=== PATIENT | male | born 1960 | race Two or more races ===

== ENCOUNTER → 2017-12-04 | Day surgery (SDC) | payer OTHER ==
[~2017-12-04] MED LIST: IPRATRPIUM/ALBUTEROL 0.5/2.5MG 3 ML NEBU. NEB; LIDOCAINE 1% PF 2 ML VIAL. ID; LIDOCAINE 2% PF Vial for OR 5 ML VIAL.; MIDAZOLAM HCL/PF 2 MG/2 ML VIAL. IV; PROPOFOL 40 ML IV; fentaNYL PF VIAL 100 MCG/2 ML VIAL IV
[2017-12-04] MEDS: IV RINGERS,LACTATED 1000ML 1,000 ML IV (09:37)
== END | disposition home or self-care (01) ==
LOC: SURG 08:59
DX: Z12.11 Encounter for screening for malignant neoplasm of colon (principal); K64.0 First degree hemorrhoids; D12.5 Benign neoplasm of sigmoid colon; K57.30 Diverticulosis of large intestine without perforation or abscess without bleeding; K21.9 Gastro-esophageal reflux disease without esophagitis; Z87.39 Personal history of other diseases of the musculoskeletal system and connective tissue; Z72.89 Other problems related to lifestyle
CPT/HCPCS: 45380; 88305; 94640; J2704; J7620